=== PATIENT | male | born 1985 | race Caucasian/White ===

== ENCOUNTER 2017-12-06 09:58 | Emergency (ER) | payer OTHER ==
[~2017-12-06] VITALS: Ht 180.3 cm; Wt 86.2 kg
== END 2017-12-06 10:56 | disposition home or self-care (01) ==
LOC: ER 09:58
DX: K40.90 Unilateral inguinal hernia, without obstruction or gangrene, not specified as recurrent (principal)

== ENCOUNTER → 2017-12-16 | Day surgery (SDC) | payer OTHER | END | disposition home or self-care (01) | LOC: ADM 12-13 15:00 → CIR.AMB 07:00 | DX: K40.90 Unilateral inguinal hernia, without obstruction or gangrene, not specified as recurrent (principal) ==

== ENCOUNTER → 2023-11-15 | Day surgery (SDC) | payer OTHER ==
[2023-11-08 08:35] LABS: HEMATOCRIT 43.8 % (39.0-48.0); HEMOGLOBIN 15.2 g/dL (13-16.00); MEAN CELL VOLUME 87.8 fL (80.0-100.00); MEAN CORPUSCULAR HEMOGLOBIN 30.6 pg (27.00-32.0); MEAN CORPUSCULAR HGB CONC 34.8 g/dl (32.0-36.0); PLATELET COUNT 233 K/uL (150-450); RED BLOOD COUNT 4.98 M/uL (4.00-6.00)
[2023-11-08 09:08] LABS: URINE APPEARANCE Clear; URINE BILIRRUBIN Negative (NEGATIVE); URINE BLOOD Negative; URINE COLOR Yellow; URINE GLUCOSE Negative (NEGATIVE); URINE LEUKOCYTE Negative; URINE NITRATE Negative; URINE PROTEIN Negative (NEGATIVE); URINE UROBILINOGEN 0.2 E.U./dl
[2023-11-08 09:12] LABS: URINE EPITHELIAL CELLS 1.6 uL (0.0-38.8); URINE WBC 6.7 uL (0.0-23.2)
[2023-11-08 09:14] LABS: URINE BACTERIA 3.7 uL (0.0-1933); URINE RBC 1.2 uL (0.0-20.8)
[2023-11-08 09:37] LABS: INR 1.03; PARTIAL THROMBOPLASTIN TIME 31.9 SECONDS (22.0-34.0); PROTHROMBIN TIME 10.8 SECONDS (9.0-11.5)
[2023-11-08 09:58] LABS: BILIRUBIN TOTAL 0.67 mg/dL (0.3-1.2); CALCIUM 9.8 mg/dL (8.5-10.1); CREATININE SERUM 1.07 mg/dL (0.70-1.30); GFR 76.94; POTASSIUM 3.79 mEq/L (3.5-5.1)
[~2023-11-15] MED LIST: CEFAZOLIN SODIUM 1,000 MG VIAL IV ONE; CEFAZOLIN SODIUM 1,000 MG VIAL IV SCH; CEFAZOLIN SODIUM 1,000 MG VIAL ONE
== END | disposition home or self-care (01) ==
LOC: ADM 11-08 07:00 → CIR.AMB 05:30
PROVIDERS: ATTEND Specialist
DX: K40.90 Unilateral inguinal hernia, without obstruction or gangrene, not specified as recurrent (principal)
CPT/HCPCS: 49505; C1781